=== PATIENT | male | born 1970 | race Caucasian/White ===

== ENCOUNTER 2018-04-29 12:42 | Emergency (ER) | payer BC, SELFPAY ==
[2018-04-29 12:46] VITALS: BP 152/109; PULSE 80; RESP 20; TEMP 36.8; O2SAT 98
[2018-04-29 13:18] LABS: Bilirubin Negative (Negative); Blood Large (Negative); Clarity Sl Cloudy; Glucose Negative (Negative); Ketones Negative (Negative); Leukocyte Esterase Negative (Negative); Nitrite Negative (Negative); Specific Gravity 1.025 (1.005-1.025); Urobilinogen 0.2 EU/dL (Up TO 0.2)
--- NOTE | 2018-04-29 13:22 | DI.CT_ITS ---
SYMPTOMS/DIAGNOSIS: LEFT FLANK PAIN, ? RENAL STONE CT SCAN OF THE ABDOMEN AND PELVIS: Renal colic CT was performed according to protocol. There are no priors for comparison. The visualized lung bases are clear. Lack of IV contrast does limit evaluation of the abdominal and pelvic organs. The unenhanced visualized portions of the liver show diffuse fatty infiltration. The unenhanced visualized portions of the spleen, pancreas, gallbladder, bile ducts and adrenal glands are unremarkable. There is a 0.8 x 0.6 cm stone at the left ureterovesical junction causing mild to moderate hydronephrosis of the left renal collecting system. No other renal calculi are seen. The right renal collecting system is intact and normal. The urinary bladder is intact. The reproductive organs are unremarkable. The abdominal aorta is of normal caliber. Incidental note is made of a circumaortic left renal vein. No significant abdominal or pelvic adenopathy, ascites or pneumoperitoneum is seen. The bowel shows mild diverticulosis but no evidence of acute diverticulitis. No evidence of bowel obstruction or inflammation is seen. A normal appendix is present. Degenerative changes are present in the spine. There is mild low attenuation bowel wall of the distal ileum. This may represent enteritis. IMPRESSION: 1. A 0.8 cm calculus at the left ureterovesical junction causing mild to moderate hydronephrosis. 2. Possible distal ileal enteritis.
[2018-04-29] MEDS: Normal Saline 1,000 ML 1000 ML IV (13:25)
[2018-04-29 13:26] LABS: WBC 0-2 HPF (0-5)
[2018-04-29 13:27] LABS: Bacteria Few HPF (Negative); C & S Indicated? No; Casts Negative LPF (Negative); Crystals Negative HPF (Negative); Epithelial Cells Few HPF (Negative); Mucus Moderate (Negative); RBC >50 (0-2)
[2018-04-29 13:33] LABS: Abs Immature Grans 0.03 k/cumm (0.0-0.09); Absolute Basophil Count 0.03 k/cumm (0.0-0.2); Absolute Eosinophil Count 0.11 k/cumm (0.0-0.7); Absolute Lymphocyte Count 1.65 k/cumm (1.2-3.4); Absolute Monocyte Count 0.56 k/cumm (0.11-0.7); Basophils % 0.5; Eosinophils % 1.8; HCT 45.3 % (40.0-50.0); HGB 15.7 g/dL (13.5-17.5); Immature Grans % 0.5; Lymphocytes % 26.3; Mean Corp. HGB Concentration 34.7 g/dL (32.0-36.0); Mean Corpuscular Hemoglobin 28.5 pg (27.0-33.0); Mean Corpuscular Volume 82.2 fL (80-95); Mean Platelet Volume 9.8 fL (8.0-11.0); Monocytes % 8.9; Platelet Count 240 x1000/uL (130-400); RBC 5.51 m/cumm (4.50-6.00); RBC Distribution Width 12.6 % (11.8-14.1); White Blood Cell Count 6.28 k/cumm (4.4-10.8)
[2018-04-29] MEDS: Ketorolac 30 MG/ML VIAL IVP (13:45)
[2018-04-29 13:47] LABS: BUN 18 mg/dL (7-18); CREATININE 0.97 mg/dL (0.70-1.30); Calcium 9.3 mg/dL (8.5-10.1); Chloride 104 mmol/L (98-107); Glucose 98 mg/dL (70-100); Potassium 3.7 mmol/L (3.5-5.1); Sodium 141 mmol/L (136-145)
--- NOTE | 2018-04-29 14:05 | W.ED.GENAD ---
Discharge Plan Disposition Patient Disposition: [facility] Condition: Stable Discharge Details Chief Complaint: Urinary Clinical Impression: Left nephrolithiasis, Hydronephrosis of left kidney Primary Care Provider: Chong Calix ED Provider: Chloe Herman Home Meds and New Rx's Prescriptions: Continue testosterone cypionate 200 MG/ML oil 200 mg IM DIRECTED RF: 0 ibuprofen 600 MG tablet 600 mg PO Q8H PRNQty: 15 RF: 0 Discharge Instructions Instructions: Kidney Stones (ED) Additional Instructions: Go directly to [facility] emergency department. You will be seen by the emergency physician and urology. Discharge Data Discharge Date/Time-TO BE ENTERED AT DEPARTURE: 04/29/18 16:46 Discharge Physician: Chloe Herman Medical Decision Making 47-year-old male presents with left flank pain, dysuria and urinary frequency with penile burning since yesterday. No known exposure to STD. No history of kidney stones. Blood pressure hypertensive, remainder vitals within normal limits. Patient appears nontoxic and in no acute distress but appears mildly uncomfortable. Differential diagnosis includes UTI, kidney stone, muscular skeletal strain, less likely epididymitis or prostatitis as scrotum normal. Urinalysis notes large blood but no obvious infection. Will place an IV, labs, CT renal stone, bolus IV fluids and dose of Toradol. 1400 --patient denies any relief of pain with Toradol. Will give a dose of morphine. 1530 --CT notes 7.7 x 6.5 mm left UVJ calculus causing dilation of the left collecting system and left ureter and left perinephric stranding. Will call [facility] urology. Pt states his pain is returning. 1550 --D/w [facility] urology Dr. Andrade -states will be unlikely for patient to pass stone based on size. If patient uncomfortable, can come to the ED here and be seen by urology for uteroscopy and likely stent placement. Patient states his pain is returning. At this point in time, patient appears nontoxic and I do not see any indication for acute transfer by ambulance. Patient is in agreement with this and will have his drive him to [facility]. Case was discussed with [facility] ER Dr. Mendez who accepts pt once he arrives. He will be discharged to [facility] ER although urology and ER are expecting him. is driving pt - pt was given dose of morphine prior to discharge and then his IV was removed. HPI General Mode of arrival: ambulatory. Date/Time Provider Initiated Documentation: 04/29/18 13:11. Limitations to Documentation: no limitations. Information obtained by: patient. HPI Narrative: Patient is a 47 old male presents with left flank pain, urinary frequency, dysuria and lower abdominal pain since yesterday. States the pain is worse this morning. He admits to sticking in his penis worse with urination. If he is sexually active only with his and does not use protection. He denies known exposure to any STDs. He denies penile discharge or lesions. He denies any known injury, hematuria, nausea, vomiting or history of kidney stones. Past medical history: None Surgical history: Umbilical hernia Social history: Alcohol, denies tobacco or drugs Medications: Testosterone Allergies: None Related Data Home Medications Medication Instructions Recorded Confirmed testosterone cypionate 200 mg IM DIRECTED 08/02/13 04/29/18 ibuprofen 600 mg PO Q8H PRN #15 tab 12/24/17 04/29/18 Previous Rx's Medication Instructions Recorded ibuprofen 600 mg PO Q8H PRN #15 tab 12/24/17 Allergies Allergy/AdvReac Type Severity Reaction Status Date / Time No Known Allergies Allergy Unverified 04/29/18 12:49 General Stated Complaint: Urinary EDUARDO: 2 Review of Systems Review of Systems All systems reviewed & are unremarkable except as noted in HPI and below Constitutional Denies chills, Denies excessive sweating, Reports fatigue, Denies fever(s), Reports weakness and Denies weight loss Eyes Reports system reviewed and no additional complaints, except as docu and Denies blurry vision ENT Denies vertigo, Denies dizziness, Denies otalgia, Denies nasal congestion, Denies sore throat and Denies throat swelling Cardiovascular Denies chest pain, Denies syncope, Denies rapid heart rate and Denies dyspnea Respiratory Denies dyspnea Gastrointestinal Denies abdominal pain, Denies diarrhea and Denies vomiting Genitourinary Denies hematuria, Reports dysuria, Reports flank pain and Reports urinary frequency Musculoskeletal Denies back pain and Denies joint swelling Integumentary/Breasts Denies lesions and Denies rash Neurologic Denies behavioral changes, Denies confusion, Denies vertigo, Denies dizziness, Denies syncope and Reports weakness Psychiatric Denies behavioral changes, Denies confusion and Denies depression Endocrine Denies excessive sweating and Reports fatigue Hematologic/Lymphatic Denies easy bruising and Denies lymphadenopathy Allergic/Immunologic Denies throat swelling [facility] Social History Smoking/Tobacco Use Status: Never Exam Const General: cooperative and healthy appearing Orientation: alert and awake [facility] Head: normal to inspection Ears: hearing grossly normal bilaterally and external ears normal General nose exam: external nose normal Face and sinus: normal facial exam Throat: posterior oropharynx normal Eyes General: appearance normal, both eyes and all related structures Eyelids: eyelids normal Pupils: PERRL EOM: EOM intact bilaterally Neck Neck: normal visual inspection Lymphatic: no lymphadenopathy noted Chest Chest: normal inspection of the chest Resp Effort & Inspection: normal respiratory effort and able to speak in complete sentences Auscultation: clear to auscultation bilaterally Cardio Rate: regular rate Rhythm: regular rhythm GI Inspection: normal to inspection Palpation: soft, not firm, no guarding, no hepatosplenomegaly, no masses and nontender Auscultation: normal bowel sounds Penis: normal penis Scrotum: scrotum normal Testes: normal Back/Spine/Pelvis Back: no CVA tenderness Skin General skin exam: no rashes or lesions noted Neuro General: alert and awake Cognition: normal cognition Speech: speech normal Gait: normal gait Motor: muscle tone normal throughout Sensory Exam: no sensory deficits noted Extrem General: normal to inspection, full ROM and normal capillary refill Psych Appearance: grossly normal Mental Status: mental status grossly normal Speech and Movement: speech and movement normal Affect: normal affect Thought Process: normal Course Vital Signs Temperature 98.2 F 04/29/18 12:46 Pulse 80 04/29/18 12:46 Respiratory Rate 20 04/29/18 12:46 Blood Pressure 152/109 H 04/29/18 12:46 Pulse Oximetry 98 04/29/18 12:46 Temperature 98.2 F 04/29/18 12:46 Temperature Source Temporal Artery Scan 04/29/18 12:46 Pulse 80 04/29/18 12:46 Respiratory Rate 20 04/29/18 12:46 Respiratory Effort 04/29/18 13:08 Blood Pressure 152/109 H 04/29/18 12:46 Blood Pressure Position Supine 04/29/18 12:46 Pulse Oximetry 98 04/29/18 12:46 Oxygen Delivery Method Room Air 04/29/18 12:46 Oxygen Flow Rate 0 04/29/18 12:46 Pain Level 10 04/29/18 12:46 Lab/Test Results Lab/Test Results: Laboratory Tests Range/Units 04/29/18 04/29/18 04/29/18 13:08 13:20 13:20 WBC (4.4-10.8) k/cumm 6.28 RBC (4.50-6.00) m/cumm 5.51 Hgb (13.5-17.5) g/dL 15.7 Hct (40.0-50.0) % 45.3 MCV (80-95) fL 82.2 MCH (27.0-33.0) pg 28.5 MCHC (32.0-36.0) g/dL 34.7 RDW (11.8-14.1) % 12.6 Plt Count (130-400) x1000/uL 240 MPV (8.0-11.0) fL 9.8 Immature Gran % 0.5 Neutrophils % 62.0 Lymphocytes % 26.3 Monocytes % 8.9 Eosinophils % 1.8 Basophils % 0.5 Absolute Neutrophils (1.2-6.7) k/cumm 3.90 Absolute Lymphocytes (1.2-3.4) k/cumm 1.65 Absolute Monocytes (0.11-0.7) k/cumm 0.56 Absolute Eosinophils (0.0-0.7) k/cumm 0.11 Absolute Basophils (0.0-0.2) k/cumm 0.03 Sodium (136-145) mmol/L 141 Potassium (3.5-5.1) mmol/L 3.7 Chloride (98-107) mmol/L 104 Carbon Dioxide (21.0-32.0) mmol/L 26.0 Anion Gap (3-11) mmol/L 11.0 BUN (7-18) mg/dL 18 Creatinine (0.70-1.30) mg/dL 0.97 Estimated GFR/1.73 m2 (mL/min/1.73m2) >= 60.00 Glucose (70-100) mg/dL 98 Calcium (8.5-10.1) mg/dL 9.3 Urine Color (Yellow) Yellow Urine Clarity Sl cloudy Urine pH (5-8) 6.0 Ur Specific [place] (1.005-1.025) 1.025 Urine Protein (Negative) mg/dL Negative Urine Ketones (Negative) mg/dL Negative Urine Blood (Negative) Large H Urine Nitrite (Negative) Negative Urine Bilirubin (Negative) Negative Urine Urobilinogen (Up TO 0.2) EU/dL 0.2 Ur Leukocyte Esterase (Negative) Negative Urine RBC (0-2) >50 H Urine WBC (0-5) HPF 0-2 Ur Epithelial Cells (Negative) HPF Few Urine Crystals (Negative) HPF Negative Urine Bacteria (Negative) HPF Few Urine Casts (Negative) LPF Negative Urine Mucus (Negative) Moderate Ur Culture Indicated? No Urine Glucose (Negative) mg/dL Negative
[2018-04-29] MEDS: MORPHine 10 MG/ML VIAL 4 MG IVP ×2 (14:11→14:51)
[2018-04-29 14:12] VITALS: BP 140/89; PULSE 77; TEMP 36; O2SAT 94
--- NOTE | 2018-04-29 14:12 | ED.GENADUL_ITS ---
Discharge Plan Disposition Patient Disposition: [facility] Condition: Stable Discharge Details Chief Complaint: Urinary Clinical Impression: Left nephrolithiasis, Hydronephrosis of left kidney Primary Care Provider: Chong Calix ED Provider: Chloe Herman Home Meds and New Rx's Prescriptions: Continue testosterone cypionate 200 MG/ML oil 200 mg IM DIRECTED RF: 0 ibuprofen 600 MG tablet 600 mg PO Q8H PRNQty: 15 RF: 0 Discharge Instructions Instructions: Kidney Stones (ED) Additional Instructions: Go directly to [facility] emergency department. You will be seen by the emergency physician and urology. Discharge Data Discharge Date/Time-TO BE ENTERED AT DEPARTURE: 04/29/18 16:46 Discharge Physician: Chloe Herman Medical Decision Making 47-year-old male presents with left flank pain, dysuria and urinary frequency with penile burning since yesterday. No known exposure to STD. No history of kidney stones. Blood pressure hypertensive, remainder vitals within normal limits. Patient appears nontoxic and in no acute distress but appears mildly uncomfortable. Differential diagnosis includes UTI, kidney stone, muscular skeletal strain, less likely epididymitis or prostatitis as scrotum normal. Urinalysis notes large blood but no obvious infection. Will place an IV, labs, CT renal stone, bolus IV fluids and dose of Toradol. 1400 --patient denies any relief of pain with Toradol. Will give a dose of morphine. 1530 --CT notes 7.7 x 6.5 mm left UVJ calculus causing dilation of the left collecting system and left ureter and left perinephric stranding. Will call [facility] urology. Pt states his pain is returning. 1550 --D/w [facility] urology Dr. Andrade -states will be unlikely for patient to pass stone based on size. If patient uncomfortable, can come to the ED here and be seen by urology for uteroscopy and likely stent placement. Patient states his pain is returning. At this point in time, patient appears nontoxic and I do not see any indication for acute transfer by ambulance. Patient is in agreement with this and will have his drive him to [facility]. Case was discussed with [facility] ER Dr. Mendez who accepts pt once he arrives. He will be discharged to [facility] ER although urology and ER are expecting him. is driving pt - pt was given dose of morphine prior to discharge and then his IV was removed. HPI General Mode of arrival: ambulatory . Date/Time Provider Initiated Documentation: 04/29/18 13:11 . Limitations to Documentation: no limitations . Information obtained by: patient . HPI Narrative: Patient is a 47 old male presents with left flank pain, urinary frequency, dysuria and lower abdominal pain since yesterday. States the pain is worse this morning. He admits to sticking in his penis worse with urination. If he is sexually active only with his and does not use protection. He denies known exposure to any STDs. He denies penile discharge or lesions. He denies any known injury, hematuria, nausea, vomiting or history of kidney stones. Past medical history: None Surgical history: Umbilical hernia Social history: Alcohol, denies tobacco or drugs Medications: Testosterone Allergies: None Related Data Home Medications Medication Instructions Recorded Confirmed testosterone cypionate 200 mg IM DIRECTED 08/02/13 04/29/18 ibuprofen 600 mg PO Q8H PRN #15 tab 12/24/17 04/29/18 Previous Rx's Medication Instructions Recorded ibuprofen 600 mg PO Q8H PRN #15 tab 12/24/17 Allergies Allergy/AdvReac Type Severity Reaction Status Date / Time No Known Allergies Allergy Unverified 04/29/18 12:49 General Stated Complaint: Urinary EDUARDO: 2 Review of Systems Review of Systems All systems reviewed & are unremarkable except as noted in HPI and below Constitutional Denies chills, Denies excessive sweating, Reports fatigue, Denies fever(s), Reports weakness and Denies weight loss Eyes Reports system reviewed and no additional complaints, except as docu and Denies blurry vision ENT Denies vertigo, Denies dizziness, Denies otalgia, Denies nasal congestion, Denies sore throat and Denies throat swelling Cardiovascular Denies chest pain, Denies syncope, Denies rapid heart rate and Denies dyspnea Respiratory Denies dyspnea Gastrointestinal Denies abdominal pain, Denies diarrhea and Denies vomiting Genitourinary Denies hematuria, Reports dysuria, Reports flank pain and Reports urinary frequency Musculoskeletal Denies back pain and Denies joint swelling Integumentary/Breasts Denies lesions and Denies rash Neurologic Denies behavioral changes, Denies confusion, Denies vertigo, Denies dizziness, Denies syncope and Reports weakness Psychiatric Denies behavioral changes, Denies confusion and Denies depression Endocrine Denies excessive sweating and Reports fatigue Hematologic/Lymphatic Denies easy bruising and Denies lymphadenopathy Allergic/Immunologic Denies throat swelling [facility] Social History Smoking/Tobacco Use Status: Never Exam Const General: cooperative and healthy appearing Orientation: alert and awake [facility] Head: normal to inspection Ears: hearing grossly normal bilaterally and external ears normal General nose exam: external nose normal Face and sinus: normal facial exam Throat: posterior oropharynx normal Eyes General: appearance normal, both eyes and all related structures Eyelids: eyelids normal Pupils: PERRL EOM: EOM intact bilaterally Neck Neck: normal visual inspection Lymphatic: no lymphadenopathy noted Chest Chest: normal inspection of the chest Resp Effort & Inspection: normal respiratory effort and able to speak in complete sentences Auscultation: clear to auscultation bilaterally Cardio Rate: regular rate Rhythm: regular rhythm GI Inspection: normal to inspection Palpation: soft, not firm, no guarding, no hepatosplenomegaly, no masses and nontender Auscultation: normal bowel sounds Penis: normal penis Scrotum: scrotum normal Testes: normal Back/Spine/Pelvis Back: no CVA tenderness Skin General skin exam: no rashes or lesions noted Neuro General: alert and awake Cognition: normal cognition Speech: speech normal Gait: normal gait Motor: muscle tone normal throughout Sensory Exam: no sensory deficits noted Extrem General: normal to inspection, full ROM and normal capillary refill Psych Appearance: grossly normal Mental Status: mental status grossly normal Speech and Movement: speech and movement normal Affect: normal affect Thought Process: normal Course Vital Signs Temperature 98.2 F 04/29/18 12:46 Pulse 80 04/29/18 12:46 Respiratory Rate 20 04/29/18 12:46 Blood Pressure 152/109 H 04/29/18 12:46 Pulse Oximetry 98 04/29/18 12:46 Temperature 98.2 F 04/29/18 12:46 Temperature Source Temporal Artery Scan 04/29/18 12:46 Pulse 80 04/29/18 12:46 Respiratory Rate 20 04/29/18 12:46 Respiratory Effort 04/29/18 13:08 Blood Pressure 152/109 H 04/29/18 12:46 Blood Pressure Position Supine 04/29/18 12:46 Pulse Oximetry 98 04/29/18 12:46 Oxygen Delivery Method Room Air 04/29/18 12:46 Oxygen Flow Rate 0 04/29/18 12:46 Pain Level 10 04/29/18 12:46 Lab/Test Results Lab/Test Results: Laboratory Tests Range/Units 04/29/18 04/29/18 04/29/18 13:08 13:20 13:20 WBC (4.4-10.8) k/cumm 6.28 RBC (4.50-6.00) m/cumm 5.51 Hgb (13.5-17.5) g/dL 15.7 Hct (40.0-50.0) % 45.3 MCV (80-95) fL 82.2 MCH (27.0-33.0) pg 28.5 MCHC (32.0-36.0) g/dL 34.7 RDW (11.8-14.1) % 12.6 Plt Count (130-400) x1000/uL 240 MPV (8.0-11.0) fL 9.8 Immature Gran % 0.5 Neutrophils % 62.0 Lymphocytes % 26.3 Monocytes % 8.9 Eosinophils % 1.8 Basophils % 0.5 Absolute Neutrophils (1.2-6.7) k/cumm 3.90 Absolute Lymphocytes (1.2-3.4) k/cumm 1.65 Absolute Monocytes (0.11-0.7) k/cumm 0.56 Absolute Eosinophils (0.0-0.7) k/cumm 0.11 Absolute Basophils (0.0-0.2) k/cumm 0.03 Sodium (136-145) mmol/L 141 Potassium (3.5-5.1) mmol/L 3.7 Chloride (98-107) mmol/L 104 Carbon Dioxide (21.0-32.0) mmol/L 26.0 Anion Gap (3-11) mmol/L 11.0 BUN (7-18) mg/dL 18 Creatinine (0.70-1.30) mg/dL 0.97 Estimated GFR/1.73 m2 (mL/min/1.73m2) >= 60.00 Glucose (70-100) mg/dL 98 Calcium (8.5-10.1) mg/dL 9.3 Urine Color (Yellow) Yellow Urine Clarity Sl cloudy Urine pH (5-8) 6.0 Ur Specific [place] (1.005-1.025) 1.025 Urine Protein (Negative) mg/dL Negative Urine Ketones (Negative) mg/dL Negative Urine Blood (Negative) Large H Urine Nitrite (Negative) Negative Urine Bilirubin (Negative) Negative Urine Urobilinogen (Up TO 0.2) EU/dL 0.2 Ur Leukocyte Esterase (Negative) Negative Urine RBC (0-2) >50 H Urine WBC (0-5) HPF 0-2 Ur Epithelial Cells (Negative) HPF Few Urine Crystals (Negative) HPF Negative Urine Bacteria (Negative) HPF Few Urine Casts (Negative) LPF Negative Urine Mucus (Negative) Moderate Ur Culture Indicated? No Urine Glucose (Negative) mg/dL Negative
--- NOTE | 2018-04-29 15:24 | DI.VRAD_ITS ---
EXAM: CT Abdomen and Pelvis Without Intravenous Contrast EXAM DATE/TIME: 04/29/2018 1:24 PM CLINICAL HISTORY: 47 years old, male; Pain; Abdominal pain TECHNIQUE: Axial computed tomography images of the abdomen and pelvis without intravenous contrast. Coronal and sagittal reformatted images were created and reviewed. COMPARISON: No relevant prior studies available. FINDINGS: Lower thorax: No acute findings. ABDOMEN: Liver: Hepatic steatosis Gallbladder and bile ducts: Normal. No calcified stones. No ductal dilation. Pancreas: Normal. No ductal dilation. Spleen: Normal. No splenomegaly. Adrenals: Normal. No mass. Kidneys and ureters: 7.7 x 6.5 millimeter LEFT UVJ calculus causes dilatation of LEFT collecting system and LEFT ureter. The LEFT kidney is edematous and there is LEFT perirenal stranding. Stomach and bowel: Low-attenuation bowel wall thickening in the ileum may represent enteritis. Appendix: Normal appendix PELVIS: Bladder: Unremarkable as visualized. Reproductive: Unremarkable as visualized. ABDOMEN and PELVIS: Intraperitoneal space: Normal. No free air. No significant fluid collection. Bones/joints: No acute fracture. No dislocation. Soft tissues: Unremarkable. Vasculature: Normal. No abdominal aortic aneurysm. Lymph nodes: Normal. No enlarged lymph nodes. IMPRESSION: 1. 7.7 x 6.5 millimeter LEFT UVJ calculus causes dilatation of LEFT collecting system and LEFT ureter. The LEFT kidney is edematous and there is LEFT perirenal stranding. 2. Low-attenuation bowel wall thickening in the ileum may represent enteritis. Dictated and Authenticated by: Amy Joyner MD. Ordering:SHALINI MORTENSEN MD
[2018-04-29 16:17] VITALS: BP 145/97; PULSE 72; RESP 16; TEMP 36.7; O2SAT 98
== END 2018-04-29 16:46 | disposition short-term general hospital (02) ==
PROVIDERS: Emergency Provider Physician Assistant; PCP Family Medicine
DX: N13.2 Hydronephrosis with renal and ureteral calculous obstruction (principal); R10.32 Left lower quadrant pain; R30.0 Dysuria
CPT/HCPCS: 36415; 80048; 96361; 96374; 96375; 96376; 99285; 74176; 81003; 81015; 85025; J1885; J2270

== ENCOUNTER 2024-03-30 22:02 | Emergency (ER) | payer OTHER, SELFPAY ==
[2024-03-30 22:06] VITALS: BP 134/89; PULSE 95; RESP 18; O2SAT 99
--- NOTE | 2024-03-30 22:10 | ED.GENADUL_ITS ---
Discharge Plan Disposition Patient Disposition: Home Condition: Good Discharge Details Clinical Impression: COVID-19, Headache Primary Care Provider: [facility] ED Provider: Fredi Beal and New Rx's Prescriptions: New Paxlovid 300 mg (150 mg x 2)-100 mg tablets,dose pack See Rx Instructions .ROUTE .COMPLEX Qty: 1 0RF Rx Instructions: take TWO 150 mg tablets of nirmatrelvir with ONE 100 mg tablet of ritonavir twice daily for 5 days Continued testosterone cypionate 200 MG/ML oil 200 mg IM DIRECTED ibuprofen 600 MG tablet 600 mg PO Q8H PRNQty: 15 0RF sertraline 100 mg tablet 150 mg PO DAILY doxycycline hyclate 100 mg tablet 100 mg PO BID lisinopril 5 mg tablet Jardiance 25 mg tablet Held atorvastatin 40 mg tablet Hold Instructions: Resume on 04/07/24. hold while on paxlovid Discharge Instructions Instructions: COVID-19 ED Additional Instructions: You were seen for headache and COVID-19. We will start you on Paxlovid. Prescription has been sent to [facility] and you should pick it up in the morning. You need to hold your atorvastatin during treatment with Paxlovid as well as 3 days after. Rest and stay hydrated over the weekend. Alternate acetaminophen with ibuprofen for pain and fever. May use Afrin nasal spray for 3 days to help with nasal congestion especially at night while on CPAP. Follow- up with primary care 1 to 2 weeks. Return to ED for any significant neurologic change, chest pain, shortness of breath, persistent vomiting, other concerns. Referrals: [facility] [Primary Care Provider] - Discharge Data Discharge Date/Time-TO BE ENTERED AT DEPARTURE: 03/31/24 00:16 HPI General Mode of arrival: ambulatory . Date/Time Provider Initiated Documentation: 03/30/24 22:09 . Limitations to Documentation: no limitations . Information obtained by: patient . HPI Narrative: Patient presents to ED complaint of headache, throbbing in nature. Began having malaise, congestion, feeling unwell 2 days ago. Tested positive for COVID this morning. Still went to work but was by himself outside. Has a bilateral frontal throbbing headache at this point. Has a lot of nasal congestion and pr essure. Denies having shortness of breath, chest pain, vomiting, neurologic change. Has had headaches similar to this in the past though not as persistent. Really just wants relief from the throbbing pressure. Related Data Home Medications ?Medication ?Instructions ?Recorded ?Confirmed testosterone cypionate 200 mg/mL 200 mg IM DIRECTED 08/02/13 03/30/24 intramuscular oil ibuprofen 600 mg tablet 600 mg PO Q8H PRN ##15 12/24/17 03/30/24 atorvastatin 40 mg tablet mg 03/30/24 doxycycline hyclate 100 mg tablet 100 mg PO BID 03/30/24 03/30/24 empagliflozin 25 mg tablet mg 03/30/24 (Jardiance) lisinopril 5 mg tablet mg 03/30/24 sertraline 100 mg tablet 150 mg PO DAILY 03/30/24 03/30/24 nirmatrelvir 300 mg (150 mg See Rx Instructions PO .COMPLEX #1 03/31/24 x2)-ritonavir 100 mg tablet,dose dose pk pack (Paxlovid) Previous Rx's ?Medication ?Instructions ?Recorded ibuprofen 600 mg tablet 600 mg PO Q8H PRN ##15 12/24/17 nirmatrelvir 300 mg (150 mg See Rx Instructions PO .COMPLEX #1 03/31/24 x2)-ritonavir 100 mg tablet,dose dose pk pack (Paxlovid) Allergies Allergy/AdvReac Type Severity Reaction Status Date / Time No Known Allergies Allergy Unverified 03/30/24 22:09 General Stated Complaint: Headache EDUARDO: 4 Review of Systems Narrative: Per HPI Exam Narrative Exam Narrative: Const: WDWN male in NAD. VS per triage. HEENT: NC/AT. Normal facial exam. Neck: Supple. Trachea midline. Lungs: Normal respiratory effort. Lungs are clear. Cor: RRR without murmur. Good radial pulses. GI: Soft/ND/NT. Neuro: A+O x 3. Normal speech, mentation, gait. Cranial nerves II - XII grossly intact. No gross motor or sensory deficit. Ext: No C/C/E. Course Vital Signs Vital signs: Vital Signs Pulse 95 H 03/30/24 22:06 Respiratory Rate 18 03/30/24 22:06 Blood Pressure 134/89 03/30/24 22:06 Pulse Oximetry 99 03/30/24 22:06 Pulse 95 H 03/30/24 22:06 Respiratory Rate 18 03/30/24 22:06 Respiratory Effort Normal 03/30/24 22:09 Blood Pressure 134/89 03/30/24 22:06 Blood Pressure Position Sitting 03/30/24 22:06 Pulse Oximetry 99 03/30/24 22:06 Oxygen Delivery Method Room Air 03/30/24 22:06 Oxygen Flow Rate 0 03/30/24 22:06 Medical Decision Making Patient presenting with a throbbing frontal headache in the setting of recent onset of COVID. He was able to work a full day. He is neurologically intact. He has had headaches similar to this in the past but not is persistent or as severe. He has a lot of nasal congestion and sinus pressure. His lungs are clear and his saturations are normal. Will place IV and give fluids, ketorolac and prochlorperazine for his headache. Will check basic labs and reevaluate. Do not feel that he requires imaging or LP at this point. Patient's laboratory studies are unremarkable. Patient's headache markedly improved with fluids and meds. He is at high risk for progression of disease and after discussion has agreed to take Paxlovid. Will need to hold his atorvastatin. May continue other medications. Rest and hydrate over the weekend. Follow-up with primary care at the [place]. Return precautions provided. Lab Data Lab results reviewed: Yes I reviewed the patient's lab results. PFSH All Active Problems Headache (Acute) COVID-19 (Acute) Abscess (Acute) Facial abscess (Acute) Medical History Hypercholesterolemia HTN (hypertension) Diabetes mellitus Surgical History S/P hernia repair Social History Smoking/Tobacco Use Status: Never Smoking risk assessment performed?: Yes Alcohol Intake: never Drug use: Never Do you feel safe in your relationship?: Yes
[2024-03-30] MEDS: Prochlorperazine 10 MG/2 ML VIAL IVP (22:56)
[2024-03-30] MEDS: Lactated Ringers 1,000 ML 1000 ML IV (22:56)
[2024-03-30] MEDS: Ketorolac 30 MG/ML VIAL 15 MG IVP (22:56)
[2024-03-30 22:59] LABS: Abs Immature Grans 0.02 10^3/uL (0.0-0.06); Absolute Basophil Count 0.02 10^3/uL (0.0-0.2); Absolute Eosinophil Count 0.05 10^3/uL (0.0-0.7); Absolute Lymphocyte Count 0.86 10^3/uL (1.2-3.4); Absolute Monocyte Count 0.56 10^3/uL (0.1-0.8); Absolute Neutrophil Count 2.76 10^3/uL (1.2-6.7); Basophils % 0.5 %; Eosinophils % 1.2 %; HCT 40.9 % (40.0-50.0); HGB 14.1 g/dL (13.5-17.5); Immature Grans % 0.5 %; Lymphocytes % 20.1 %; MCH 30.4 pg (27.0-33.0); MCHC 34.5 % (32.0-36.0); MCV 88 fL (80-95); MPV 9.2 fL (8.0-11.0); Monocytes % 13.1 %; Neutrophils % 64.6 %; Platelet Count 172 10^3/uL (130-400); RBC 4.64 10^6/uL (4.36-5.78); RDW 12.7 % (11.8-14.1); RDW-SD 40.8 fL; WBC 4.27 10^3/uL (4.4-10.8)
[2024-03-30 23:18] LABS: ALT 30 U/L (16-63); AST 18 U/L (15-37); Albumin 4.4 g/dL (3.4-5.0); Alkaline Phosphatase 88 U/L (46-116); Anion Gap 8.9 mmol/L (3-11); BUN 18 mg/dL (7-18); Bilirubin, Total 0.59 mg/dL (0.2-1.0); CO2 27.1 mmol/L (21.0-32.0); Calcium 9.5 mg/dL (8.5-10.1); Chloride 104 mmol/L (98-107); Estimated GFR 90.56 (mL/min/1.73m2); Glucose 107 mg/dL (74-106); Potassium 3.3 mmol/L (3.5-5.1); Sodium 140 mmol/L (136-145); Total Protein 7.7 g/dL (6.4-8.2)
[2024-03-31 00:10] VITALS: BP 109/74; PULSE 83; RESP 16; O2SAT 99
== END 2024-03-31 00:16 | disposition home or self-care (01) ==
PROVIDERS: Emergency Provider Emergency Medicine
DX: U07.1 COVID-19 (principal); R51.9 Headache, unspecified; I10 Essential (primary) hypertension; E11.9 Type 2 diabetes mellitus without complications; E78.00 Pure hypercholesterolemia, unspecified
CPT/HCPCS: 80053; 96361; 96374; 96375; 99284; 85025; 99283; J0780; J1885

== ENCOUNTER 2024-05-17 23:26 | Emergency (ER) | payer OTHER, SELFPAY ==
[2024-05-17 23:47] VITALS: BP 132/78; PULSE 87; RESP 18; TEMP 36.8; O2SAT 97
[2024-05-18 00:19] VITALS: RESP 18
[2024-05-18] MEDS: Ibuprofen 800 MG TAB PO (00:57)
[2024-05-18] MEDS: Acetaminophen 500 MG TAB 1000 MG PO (00:57)
[2024-05-18 01:43] VITALS: BP 127/70; PULSE 73; RESP 16; TEMP 36.5; O2SAT 95
[2024-05-18] MEDS: Lidocaine 2% Multi-Dose 50 ML VIAL (02:29)
--- NOTE | 2024-05-18 02:35 | W.ED.GENAD ---
Discharge Plan Disposition Patient Disposition: Home Condition: Good Discharge Details Clinical Impression: Paronychia of great toe Primary Care Provider: [facility] [place] ED Provider: Laure Melissa Home Meds and New Rx's Prescriptions: New amoxicillin-pot clavulanate 875-125 mg tablet 1 tab PO BID Qty: 14 0RF Continued testosterone cypionate 200 MG/ML oil 200 mg IM DIRECTED ibuprofen 600 MG tablet 600 mg PO Q8H PRNQty: 15 0RF sertraline 100 mg tablet 200 mg PO DAILY atorvastatin 40 mg tablet 40 mg lisinopril 5 mg tablet 5 mg ONCE Jardiance 25 mg tablet 25 mg DAILY Paxlovid 300 mg (150 mg x 2)-100 mg tablets,dose pack See Rx Instructions .ROUTE .COMPLEX Qty: 1 0RF Rx Instructions: take TWO 150 mg tablets of nirmatrelvir with ONE 100 mg tablet of ritonavir twice daily for 5 days carboxymethylcellulose sodium [Refresh Plus] 0.5 % dropperette 1 drp ONCE Discontinued doxycycline hyclate 100 mg tablet 100 mg PO BID Discharge Instructions Instructions: Paronychia ED Additional Instructions: Amoxicilin-clauv twice a day for the next 7 days. Call your primary care doctor today to schedule an appointment for within the next 5 days to followup on your visit here. Return to the emergency department for new or worsening symptoms including fever, worsening pain/swelling in your toe, or if you have any other concerns. Discharge Data Discharge Date/Time-TO BE ENTERED AT DEPARTURE: 05/18/24 02:52 HPI General Mode of arrival: ambulatory. Date/Time Provider Initiated Documentation: 05/18/24 00:29. Limitations to Documentation: no limitations. Information obtained by: patient. HPI Narrative: 53yo M with DM presenting for pain and swelling to left great toe. Started three days ago. Used home pedicure tools to trim ingrown nail, however pain has been worsening. Otherwise in his usual state of health. Related Data Home Medications ?Medication ?Instructions ?Recorded ?Confirmed testosterone cypionate 200 mg/mL 200 mg IM DIRECTED 08/02/13 05/17/24 intramuscular oil ibuprofen 600 mg tablet 600 mg PO Q8H PRN ##15 12/24/17 05/17/24 atorvastatin 40 mg tablet 40 mg 03/30/24 empagliflozin 25 mg tablet 25 mg DAILY 03/30/24 (Jardiance) lisinopril 5 mg tablet 5 mg ONCE 03/30/24 sertraline 100 mg tablet 200 mg PO DAILY 03/30/24 05/17/24 nirmatrelvir 300 mg (150 mg See Rx Instructions PO .COMPLEX #1 03/31/24 05/17/24 x2)-ritonavir 100 mg tablet,dose dose pk pack (Paxlovid) carboxymethylcellulose sodium 0.5 1 drp ONCE 05/17/24 % eye drops in a dropperette (Refresh Plus) amoxicillin 875 mg-potassium 1 tab PO BID #14 tabs 05/18/24 clavulanate 125 mg tablet Previous Rx's ?Medication ?Instructions ?Recorded ibuprofen 600 mg tablet 600 mg PO Q8H PRN ##15 12/24/17 nirmatrelvir 300 mg (150 mg See Rx Instructions PO .COMPLEX #1 03/31/24 x2)-ritonavir 100 mg tablet,dose dose pk pack (Paxlovid) amoxicillin 875 mg-potassium 1 tab PO BID #14 tabs 05/18/24 clavulanate 125 mg tablet Allergies Allergy/AdvReac Type Severity Reaction Status Date / Time No Known Allergies Allergy Unverified 05/17/24 23:50 General Stated Complaint: GenMedical EDUARDO: 4 Review of Systems Narrative: see HPI Exam Narrative Exam Narrative: General: Alert, well appearing, well nourished, in no acute distress. Head: Normocephalic, atraumatic Neck: Trachea midline, ?Neck supple. Cardiac: ?No cyanosis. Resp: No respiratory distress. Speaking in full sentences. Extremities: ?No deformities.? No peripheral edema. Left great toe paronchyia. Neurologic: GCS 15. ? Moves all extremities freely against gravity Course Vital Signs Vital signs: Vital Signs Temperature 36.8 C 05/17/24 23:47 Pulse 87 05/17/24 23:47 Respiratory Rate 18 05/17/24 23:47 Blood Pressure 132/78 05/17/24 23:47 Pulse Oximetry 97 05/17/24 23:47 Temperature 36.5 C 05/18/24 01:43 Temperature Source Oral 05/18/24 01:43 Pulse 73 05/18/24 01:43 Respiratory Rate 16 05/18/24 01:43 Respiratory Effort Normal, Non-Labored 05/18/24 01:43 Respiratory Depth Normal 05/18/24 01:43 Respiratory Pattern Normal 05/18/24 00:19 Blood Pressure 127/70 05/18/24 01:43 Blood Pressure Mean 89 05/18/24 01:43 Blood Pressure Position Sitting 05/18/24 01:43 Pulse Oximetry 95 05/18/24 01:43 Oxygen Delivery Method Room Air 05/18/24 01:43 Oxygen Flow Rate 0 05/18/24 01:43 Pain Level 7 05/18/24 01:43 Procedures Abscess I/D Site: Foot (left great toe paronchyia) Side (if applicable): Left Sedation/analgesia: Other (digital block) Technique: Incised with #11 Blade Amount of fluid expressed (mL): 1 Irrigation: No Nerve Block Nerve Block 1: Time out performed: Yes Local Anesthetic: Lidocaine 2% Amount of anesthesia used (mL): 1 Side: left Nerve Blocks: digital (left great toe) Procedure Successful: Yes Patient Tolerated Procedure: well Complications: none Medical Decision Making 53yo M with DM presenting for left great toe paronchyia. Attempted to remove ingrown nail with home pedicure tools. Clear paronchyia on exam, nail removal appears adequate. Incised and drained under digital block, tolerated well. Given hx DM, out of abundance of caution will discharge on 7 day course of augment. Discharged home; discharge instructions and return precautions were reviewed with patient who verbalized understanding. All questions were answered and he is in full agreement with the plan. Quality:SDOH Health Related Social Needs: No Data to Display PFSH All Active Problems (Updated 05/18/24 @ 02:36 by Laure Melissa MD) Paronychia of great toe (Acute) COVID-19 (Acute) Abscess (Acute) Facial abscess (Acute) Medical History (Updated 05/18/24 @ 02:36 by Laure Melissa MD) Hypercholesterolemia HTN (hypertension) Diabetes mellitus Surgical History S/P hernia repair Social History Smoking/Tobacco Use Status: Never Smoking risk assessment performed?: Yes Alcohol Intake: never Drug use: Never Do you feel safe in your relationship?: Yes
== END 2024-05-18 02:52 | disposition home or self-care (01) ==
PROVIDERS: Emergency Provider Student in an Organized Health Care Education/Training Program
DX: L03.032 Cellulitis of left toe (principal)
CPT/HCPCS: 10060; J2003

== ENCOUNTER 2025-04-28 18:32 | Emergency (ER) | payer OTHER, SELFPAY ==
[2025-04-28] VITALS (28 sets, daily range): BP systolic 114–147; BP diastolic 57–103; PULSE 89–109; RESP 10–34; TEMP 38.3; O2SAT 92–100
[2025-04-28 19:15] LABS: HCT 40.1 % (40.0-50.0); HGB 13.6 g/dL (13.5-17.5); MCH 28.6 pg (27.0-33.0); MCHC 33.9 % (32.0-36.0); MCV 84 fL (80-95); MPV 9.3 fL (8.0-11.0); Platelet Count 199 10^3/uL (130-400); RBC 4.75 10^6/uL (4.36-5.78); RDW 12.9 % (11.8-14.1); RDW-SD 39.6 fL; WBC 10.75 10^3/uL (4.4-10.8)
[2025-04-28 19:30] LABS: Anion Gap 11.2 mmol/L (3-11); BUN 23 mg/dL (7-18); C-Reactive Protein 11.16 mg/dL (<or=0.5); CO2 23.8 mmol/L (21.0-32.0); Calcium 9.3 mg/dL (8.5-10.1); Chloride 104 mmol/L (98-107); Estimated GFR 65.69 (mL/min/1.73m2); Glucose 151 mg/dL (74-106); Potassium 3.8 mmol/L (3.5-5.1); Sodium 139 mmol/L (136-145)
--- NOTE | 2025-04-28 19:30 | DI.RAD_ITS ---
Exam(s) XR KNEE RT 3V AP,LAT,MAYI EXAM: XR KNEE RT 3V AP,LAT,MAYI CLINICAL HISTORY: pain, effusion. TECHNIQUE: 2D digital imaging was performed. COMPARISON: No exams were available for comparison FINDINGS: Four views There is prominent soft tissue swelling anterior to the quadriceps tendon, patella, and patellar ligament. There does not appear to be an obvious joint effusion. No evidence of fracture. Mild degenerative changes noted. No prominent joint space narrowing. No significant osseous lesions nor loose intra-articular bodies. IMPRESSION: Soft tissue swelling anteriorly. No fractures. No obvious knee joint effusion. DATA REPOSITORY: RADIATION DOSE DELIVERED:
--- NOTE | 2025-04-28 19:49 | W.ED.GENAD ---
Discharge Plan Disposition Patient Disposition: Home Condition: Fair Discharge Details Clinical Impression: Cellulitis, Osteoarthritis Primary Care Provider: [facility] Provider: Ej Diamond Home Meds and New Rx's Prescriptions: New cephalexin 500 mg capsule 500 mg PO QID Qty: 40 0RF hydrocodone-acetaminophen 5-325 mg tablet 1 tab PO Q6H PRNQty: 12 0RF No Action testosterone cypionate 200 MG/ML oil 200 mg IM DIRECTED ibuprofen 600 MG tablet 600 mg PO Q8H PRNQty: 15 0RF Ozempic 2 mg/dose (8 mg/3 mL) pen injector 2 mg SUBCUT .q weekly sertraline 100 mg tablet 200 mg PO DAILY atorvastatin 40 mg tablet 40 mg PO DAILY lisinopril 5 mg tablet 5 mg PO DAILY Jardiance 25 mg tablet 25 mg PO DAILY Paxlovid 300 mg (150 mg x 2)-100 mg tablets,dose pack See Rx Instructions .ROUTE .COMPLEX Qty: 1 0RF Rx Instructions: take TWO 150 mg tablets of nirmatrelvir with ONE 100 mg tablet of ritonavir twice daily for 5 days carboxymethylcellulose sodium [Refresh Plus] 0.5 % dropperette 1 drp ophthalmic (eye) DAILY PRN amoxicillin-pot clavulanate 875-125 mg tablet 1 tab PO BID Qty: 14 0RF Discharge Instructions Instructions: Cellulitis (Skin Infection), Adult ED Referrals: ORTHOPAEDICS,[facility] [OTHER, Orthopaedic] - 2 days HPI General Date/Time Provider Initiated Documentation: 04/28/25 18:53. HPI Narrative: This 54-year-old male presenting to the emergency department with a chief complaint of right knee swelling and erythema. Patient states that he is having pain with ambulation and bending the knee. It hurts to bear weight. Symptoms started earlier today. He has felt warm and achy. He has noticed some redness over the knee and has a number of small nicks at the skin. He spends a lot of time working on his knees in gravel and similar situations. No rashes elsewhere. No cough. No dysuria. No vomiting or diarrhea. No headache or neck pain. No recent injuries. Tetanus is up-to-date. Related Data Home Medications ?Medication ?Instructions ?Recorded ?Confirmed testosterone cypionate 200 mg/mL 200 mg IM DIRECTED 08/02/13 04/28/25 intramuscular oil ibuprofen 600 mg tablet 600 mg PO Q8H PRN ##15 12/24/17 04/28/25 atorvastatin 40 mg tablet 40 mg PO DAILY 03/30/24 04/28/25 empagliflozin 25 mg tablet 25 mg PO DAILY 03/30/24 04/28/25 (Jardiance) lisinopril 5 mg tablet 5 mg PO DAILY 03/30/24 04/28/25 sertraline 100 mg tablet 200 mg PO DAILY 03/30/24 04/28/25 nirmatrelvir 300 mg (150 mg See Rx Instructions PO .COMPLEX #1 03/31/24 04/28/25 x2)-ritonavir 100 mg tablet,dose dose pk pack (Paxlovid) carboxymethylcellulose sodium 0.5 1 drp ophthalmic (eye) DAILY PRN 05/17/24 04/28/25 % eye drops in a dropperette (Refresh Plus) amoxicillin 875 mg-potassium 1 tab PO BID #14 tabs 05/18/24 04/28/25 clavulanate 125 mg tablet cephalexin 500 mg capsule 500 mg PO QID #40 caps 04/28/25 hydrocodone 5 mg-acetaminophen 325 1 tab PO Q6H PRN #12 tabs 04/28/25 mg tablet semaglutide 2 mg/dose (8 mg/3 mL) 2 mg subcut .q weekly 04/28/25 04/28/25 subcutaneous pen injector (Ozempic) Previous Rx's ?Medication ?Instructions ?Recorded ibuprofen 600 mg tablet 600 mg PO Q8H PRN ##15 12/24/17 nirmatrelvir 300 mg (150 mg See Rx Instructions PO .COMPLEX #1 03/31/24 x2)-ritonavir 100 mg tablet,dose dose pk pack (Paxlovid) amoxicillin 875 mg-potassium 1 tab PO BID #14 tabs 05/18/24 clavulanate 125 mg tablet cephalexin 500 mg capsule 500 mg PO QID #40 caps 04/28/25 hydrocodone 5 mg-acetaminophen 325 1 tab PO Q6H PRN #12 tabs 04/28/25 mg tablet Allergies Allergy/AdvReac Type Severity Reaction Status Date / Time No Known Allergies Allergy Unverified 04/28/25 18:43 General Stated Complaint: Orthopedic EDUARDO: 3 Review of Systems All systems reviewed & are unremarkable except as noted in HPI and below Constitutional Constitutional: Reports system reviewed and no additional complaints, except as documented, Reports fever(s), Denies weakness and Denies weight loss Eyes Eyes: Denies blurry vision ENT Ears, Nose, Mouth, and Throat: Denies sore throat Cardiovascular Cardiovascular: Denies chest pain, Denies palpitations and Denies dyspnea Respiratory Respiratory: Denies cough, Denies dyspnea and Denies wheezing Gastrointestinal Gastrointestinal: Denies abdominal pain, Denies diarrhea, Denies nausea and Denies vomiting Genitourinary Genitourinary: Denies hematuria and Denies dysuria Musculoskeletal Musculoskeletal: Denies back pain, Reports arthralgias, Reports joint swelling and Denies numbness Integumentary/Breasts Skin/Breast: Reports erythema Neurologic Neurologic: Denies numbness and Denies weakness Psychiatric Psychiatric: Denies suicidal ideation Endocrine Endocrine: Denies palpitations Allergic/Immunologic Allergic/Immunologic: Denies wheezing Exam Const General: no acute distress and well groomed HENMT Mouth: oral mucosae normal and moist mucous membranes Throat: posterior oropharynx normal Eyes Conjunctivae: conjunctivae normal Sclera: sclerae normal Neck Neck: full ROM and No JVD Resp Effort & Inspection: normal respiratory effort Auscultation: clear to auscultation bilaterally Cardio Rate: regular rate Rhythm: regular rhythm Heart Sounds: no murmurs GI Palpation: soft and nontender Skin Other: There are small scabs over the right knee and areas where the patient indicates he has nicked his knee on gravel or similar while working. There is erythema and the knee is warm to the touch. Neuro General: patient alert and patient oriented x3 Extrem General: full ROM Other: Right knee is edematous. It is difficult to tell whether or not there is an effusion secondary to the swelling. Pain is exacerbated by flexion of the knee. Psych Appearance: grossly normal Mental Status: mental status grossly normal Speech and Movement: speech and movement normal Affect: normal affect Thought Process: normal Course Vital Signs Vital signs: Vital Signs Temperature 38.3 C H 04/28/25 18:36 Pulse 108 H 04/28/25 18:36 Respiratory Rate 18 04/28/25 18:36 Blood Pressure 143/75 H 04/28/25 18:36 Pulse Oximetry 97 04/28/25 18:36 Temperature 38.3 C H 04/28/25 18:36 Temperature Source Oral 04/28/25 18:36 Pulse 108 H 04/28/25 18:36 Respiratory Rate 18 04/28/25 18:36 Blood Pressure 143/75 H 04/28/25 18:36 Blood Pressure Position Sitting 04/28/25 18:36 Pulse Oximetry 97 04/28/25 18:36 Oxygen Delivery Method Room Air 04/28/25 18:36 Oxygen Flow Rate 0 04/28/25 18:36 Pain Level 8 04/28/25 18:36 Lab/Test Results Lab/Test Results: 04/28/25 19:17 Blood Blood Culture - Pending 04/28/25 19:06 Blood Blood Culture - Pending Laboratory Tests Range/Units 04/28/25 19:06 WBC (4.4-10.8) 10^3/uL 10.75 RBC (4.36-5.78) 10^6/uL 4.75 Hgb (13.5-17.5) g/dL 13.6 Hct (40.0-50.0) % 40.1 MCV (80-95) fL 84 MCH (27.0-33.0) pg 28.6 MCHC (32.0-36.0) % 33.9 RDW (11.8-14.1) % 12.9 Plt Count (130-400) 10^3/uL 199 MPV (8.0-11.0) fL 9.3 Sodium (136-145) mmol/L 139 Potassium (3.5-5.1) mmol/L 3.8 Chloride (98-107) mmol/L 104 Carbon Dioxide (21.0-32.0) mmol/L 23.8 Anion Gap (3-11) mmol/L 11.2 H BUN (7-18) mg/dL 23 H Creatinine (0.70-1.30) mg/dL 1.3 Est GFR (CKD-EPI 2020) (mL/min/1.73m2) 65.69 Glucose (74-106) mg/dL 151 H Calcium (8.5-10.1) mg/dL 9.3 C-Reactive Protein (<or=0.5) mg/dL 11.16 H Procedure Joint Aspiration/Injection Date of Procedure: 04/28/25 Time of procedure: 21:57 Provider that performed the procedure: Ej Diamond Indication: Other (? septic joint) Standard Time Out Performed: Yes Patient Consented: Verbally Local Anesthetic: Lidocaine 2% Amount of anesthetic used(mL): 3 Joint Aspirated: Right knee Patient Tolerated Procedure: well Procedure Description/Note: Right knee aspirated after applying Betadine. Standard sterile precautions were utilized. Attempts were made to avoid any cellulitic appearing areas. Approximately 5 cc of straw-colored fluid were aspirated. Patient tolerated the procedure well. Medical Decision Making This a 54-year-old male presenting to the emergency department with a chief complaint of knee pain and swelling. The patient was seen and examined by me. Old charts were reviewed and nursing notes were reviewed. I did note that the patient is diabetic which increases concern. Surface of the skin appears to be cellulitic. I discussed the case with orthopedics at [facility]. They indicated that with concern for a septic joint it is ultimately necessary to aspirate the joint regardless of the potentially cellulitic skin. I discussed this with the patient and we engaged in shared decision making. I explained that there is concern for the possible introduction of infection, however missing a septic joint could have severe consequences. Informed consent was obtained. Patient was provided Rocephin. Cultures were sent. He was provided morphine for pain control. Patient CRP is markedly elevated. Fluid analysis reveals 54 white cells and no crystals. This would suggest osteoarthritis. Given the patient's fever and the erythema I still believe he has a cellulitis and will discharge him with a prescription for cephalexin. I will refer him to orthopedics for follow-up. He will be given a prescription for hydrocodone for pain medication. He can return if he has any problems and call if he has questions or concerns. Medical Records Medical records reviewed: Yes I reviewed the patient's medical records. Lab Data Lab results reviewed: Yes I reviewed the patient's lab results. [facility] All Active Problems (Updated 04/28/25 @ 23:01 by Ej Diamond MD) Osteoarthritis (Chronic) Cellulitis (Acute) COVID-19 (Acute) Abscess (Acute) Facial abscess (Acute) Medical History Hypercholesterolemia HTN (hypertension) Diabetes mellitus Surgical History S/P hernia repair Social History Smoking/Tobacco Use Status: Never Smoking risk assessment performed?: Yes Alcohol Intake: never Drug use: Never Substance use type: does not use Do you feel safe in your relationship?: Yes PAWSS Have you Been Recently Intoxicated or Drunk Within the Last 30 days?: No Have you Ever Experienced Previous Episodes of Alcohol Withdrawal?: No Have you ever Experienced Withdrawal Seizures?: No Have you ever Experienced Delirium Tremens(DT)s?: No Have you ever undergone Alcohol Rehabilitation Treatment (i.e, inpt ot outpatient treatment programs)?: No Have you ever Experienced Blackouts?: No Have you ever Combined Alcohol with other Downers within the last 90 days?: No Have you ever Combined Alcohol with any other Substance of Abuse during the last 90 days?: No Positive Blood Alcohol level on Presentation? [PCS.BAL]: No Evidence of Increased Autonomic Activity (i.e. HR>120, tremor, sweating, agitation, nausea)?: No Result: 0
--- NOTE | 2025-04-28 20:49 | DI.VRAD_ITS ---
PROCEDURE INFORMATION: Exam: XR Right Knee Exam date and time: 04/28/2025 7:40 PM Age: 54 years old Clinical indication: Knee; Right; Pain, swelling TECHNIQUE: Imaging protocol: Radiologic exam of the right knee. Views: 3 views. COMPARISON: No relevant prior studies available. FINDINGS: Bones/joints: There are mild degenerative changes at the patellofemoral articulation. Minimal hypertrophic spurring noted. Medial and lateral compartment appear intact. No fracture. No joint effusion. Soft tissues: Normal. IMPRESSION: No evidence for acute abnormality. Dictated and Authenticated by: Magalie Dunne MD. Orderin Lobo Pagan MD
[2025-04-28] MEDS: Acetaminophen 500 MG TAB 1000 MG PO (21:00)
[2025-04-28] MEDS: cefTRIAXone 1 GM/50 ML BAG 100 GM (21:04)
[2025-04-28] MEDS: MORPHine 4 MG/ML SYR IVP (21:37)
[2025-04-28 22:46] LABS: Polynuclear Cells 11 %
[2025-04-28] MEDS: Cephalexin 500 MG CAP, 4 CAPS/BTL PO (23:17)
== END 2025-04-28 23:18 | disposition home or self-care (01) ==
PROVIDERS: Emergency Provider Emergency Medicine
DX: L03.115 Cellulitis of right lower limb (principal); M25.561 Pain in right knee; M25.461 Effusion, right knee; M17.11 Unilateral primary osteoarthritis, right knee
CPT/HCPCS: 20610; 36415; 73562; 80048; 85027; 87040; 96372; 96374; 99284; 86140; 87070; 87205; 89051; 89060; J0696; J2270